=== PATIENT | male | born 1965 | race Caucasian/White ===

== ENCOUNTER 2017-03-16 13:21 | Emergency (ER) | payer MEDICARE, OTHER | END 2017-03-16 15:43 | disposition home or self-care (01) | LOC: FER 13:21 | DX: S46.912A Strain of unspecified muscle, fascia and tendon at shoulder and upper arm level, left arm, initial encounter (principal); M19.012 Primary osteoarthritis, left shoulder; W18.40XA Slipping, tripping and stumbling without falling, unspecified, initial encounter | CPT/HCPCS: 73030; J1885 ==

== ENCOUNTER 2020-12-30 05:04 | Emergency (ER) | payer OTHER ==
[2020-12-30] MEDS ORDERED: NAPROXEN500 MG PO (05:44)
== END 2020-12-30 06:00 | disposition home or self-care (01) ==
LOC: FER 05:04
DX: S53.402A Unspecified sprain of left elbow, initial encounter (principal); I10 Essential (primary) hypertension; E11.9 Type 2 diabetes mellitus without complications; W19.XXXA Unspecified fall, initial encounter; Y92.009 Unspecified place in unspecified non-institutional (private) residence as the place of occurrence of the external cause
CPT/HCPCS: 73080; 96372; J1885